=== PATIENT | male | born 1995 | race Caucasian/White ===

== ENCOUNTER 2023-02-25 10:18 | Emergency (ER) | payer MEDICAID ==
[~2023-02-25] VITALS: Ht 190.5 cm; Wt 91.0 kg
[2023-02-25 10:32] VITALS: O2SAT 100
[2023-02-25 12:16] LABS: CLARITY URINE CLEAR (CLEAR); COLOR URINE YELLOW (YELLOW); GLUCOSE URINE NEGATIVE (NEGATIVE); KETONES URINE NEGATIVE (NEGATIVE); LEUKOCYTE ESTERASE URINE NEGATIVE (NEGATIVE); NITRITE URINE NEGATIVE (NEGATIVE); OCCULT BLOOD URINE NEGATIVE (NEGATIVE); PROTEIN URINE NEGATIVE (NEGATIVE)
[2023-02-25 13:19] VITALS: BP 118/72; PULSE 76; RESP 16; TEMP 98.6
[2023-02-27 09:07] LABS: CHLAMYDIA TRACHOMATIS NAA Negative (Negative); NEISSERIA GONORRHOEAE NAA Negative (Negative)
== END 2023-02-25 13:20 | disposition home or self-care (01) ==
LOC: ER 10:18
DX: R35.0 Frequency of micturition (principal)
CPT/HCPCS: 81003; 87491; 87591; 99283